=== PATIENT | female | born 1945 | race Caucasian/White ===

== ENCOUNTER → 2017-01-22 | Outpatient (CLI) | payer OTHER, MEDICARE | LOC: FIMAGING 11:40 | DX: Z12.31 Encounter for screening mammogram for malignant neoplasm of breast (principal) | CPT/HCPCS: G0202 ==

== ENCOUNTER → 2017-06-19 | Outpatient (CLI) | payer OTHER, MEDICARE | LOC: BHFA 13:00 | PROVIDERS: ATTEND Internal Medicine Cardiovascular Disease | DX: I48.91 Unspecified atrial fibrillation (principal) ==

== ENCOUNTER → 2017-07-22 | Outpatient (CLI) | payer OTHER, MEDICARE | LOC: BMCIMAGING 09:57 | PROVIDERS: ATTEND Physician Assistant Medical | DX: Z12.39 Encounter for other screening for malignant neoplasm of breast (principal); N63.20 Unspecified lump in the left breast, unspecified quadrant | CPT/HCPCS: 76641; G0206 ==

== ENCOUNTER 2017-10-29 16:20 | Emergency (ER) | payer OTHER, MEDICARE ==
[2017-10-29 16:24] VITALS: TEMP 98.2
--- NOTE | 2017-10-29 16:47 | CPEKG ---
Heart Rate: 115 RR Interval: 522 QRSD Interval: 76 QT Interval: 336 QTC Interval: 465 QRS [place]: -29 T Wave [place]: 60 EKG Severity - ABNORMAL ECG - EKG Impression: A-FLUTTER W/ PREDOM 2:1 AV BLOCK, A-RATE 254 EKG Impression: PROBABLE INFERIOR INFARCT, OLD Electronically Signed By: Harshal Pineda 29-Oct-2017 16:59:41
[2017-10-29] MEDS ORDERED: NS 1,000 ML IV ONE (16:55)
[2017-10-29] MEDS ORDERED: DILTIAZEM 25 MG/5 ML VIAL IVP ONE (16:55)
--- NOTE | 2017-10-29 16:59 | EDPHY ---
H & P Stated Complaint: afib Time Seen by Provider: 10/29/17 16:47 HPI/ROS: CHIEF COMPLAINT: Atrial fibrillation HISTORY OF PRESENT ILLNESS: The patient is a 71-year-old female with a history of atrial fibrillation and ablation several years ago on Eliquis, flecainide and diltiazem to control her occasional AFib symptoms. She states that this happens to her frequently but usually lasts a couple of minutes. She states that it began this morning just before she got out of bed. She denies chest pain or shortness of breath. She did take her medications this morning but has not taken any extra. She presented to her primary Dr Dean who recommended she come to the ER. She has not had any recent fevers or infections. No lightheadedness dizziness or headaches. REVIEW OF SYSTEMS: Constitutional: denies: chills, fever, recent illness, recent injury EENTM: denies: blurred vision, double vision, nose congestion Respiratory: denies: cough, shortness of breath Cardiac: See HPI Gastrointestinal/Abdominal: denies: abdominal pain, diarrhea, nausea, vomiting, blood streaked stools Genitourinary: denies: dysuria, frequency, hematuria, pain Musculoskeletal: denies: joint pain, muscle pain Skin: denies: lesions, rash, jaundice, bruising Neurological: denies: headache, numbness, paresthesia, tingling, dizziness, weakness Hematologic/Lymphatic: denies: blood clots, easy bleeding, easy bruising Immunologic/allergic: denies: HIV/AIDS, transplant EXAM: GENERAL: Well-appearing, well-nourished and in no acute distress. HEAD: Atraumatic, normocephalic. EYES: Pupils equal round and reactive to light, extraocular movements intact, sclera anicteric, conjunctiva are normal. ENT: TMs normal, nares patent, oropharynx clear without exudates. Moist mucous membranes. NECK: Normal range of motion, supple without lymphadenopathy or JVD. LUNGS: Breath sounds clear to auscultation bilaterally and equal. No wheezes rales or rhonchi. HEART: Irregular, tachycardic ABDOMEN: Soft, nontender, normoactive bowel sounds. No guarding, no rebound. No masses appreciated. BACK: No CVA tenderness, no spinal tenderness, step-offs or deformities EXTREMITIES: Normal range of motion, no pitting or edema. No clubbing or cyanosis. NEUROLOGICAL: Cranial nerves II through XII grossly intact. Normal speech, normal gait. 5/5 strength, normal movement in all extremities, normal sensation PSYCH: Normal mood, normal affect. SKIN: Warm, dry, normal turgor, no visible rashes or lesions. Source: Patient Exam Limitations: No limitations - Personal History Current Tetanus/Diphtheria Vaccine: Yes - Medical/Surgical History Hx Asthma: No Hx Chronic Respiratory Disease: No Hx Diabetes: No Hx Cardiac Disease: Yes Hx Renal Disease: No Hx Cirrhosis: No Hx Alcoholism: No Hx HIV/AIDS: No Hx Splenectomy or Spleen Trauma: No Other PMH: LILIANA, HYST, A FIB WITH ABLATION, HAS METAL STENT INTO NERVE TO BLADDER, A RESULT OF BLADDER SURGERY COMPLICATIONS/UNABLE TO HAVE MRI'S, ORTHO SURGERIES - Family History Significant Family History: No pertinent family hx - Social History Smoking Status: Never smoked Alcohol Use: Sober Drug Use: None Constitutional: Initial Vital Signs Temperature (C) 36.8 C 10/29/17 16:22 Heart Rate 122 H 10/29/17 16:22 Respiratory Rate 20 10/29/17 16:22 Blood Pressure 143/118 H 10/29/17 16:22 O2 Sat (%) 94 10/29/17 16:22 O2 Delivery Mode [Post Nasal Cannula Procedure 4th] O2 Delivery Mode [Post Nasal Cannula Procedure 3rd] O2 Delivery Mode [Post Non-Rebreather Mask Procedure 2nd] O2 Delivery Mode [Post Non-Rebreather Mask Procedure 1st] O2 Delivery Mode [Procedural Non-Rebreather Mask 1st] O2 Delivery Mode [.Immediate Non-Rebreather Mask Pre-Procedure] O2 Delivery Mode Room Air O2 (L/minute) [Post Procedure 3 4th] O2 (L/minute) [Post Procedure 3 3rd] O2 (L/minute) [Post Procedure 15 2nd] O2 (L/minute) [Post Procedure 15 1st] O2 (L/minute) [Procedural 1st] 15 O2 (L/minute) [.Immediate Pre- 15 Procedure] Allergies/Adverse Reactions: amoxicillin Allergy (Verified 10/29/17 16:21) dabigatran etexilate mesylate [From Pradaxa] Allergy (Verified 10/29/17 16:21) sulfamethoxazole [From Septra] Allergy (Verified 10/29/17 16:21) trimethoprim [From Septra] Allergy (Verified 10/29/17 16:21) Home Medications: Medication Instructions Recorded Apixaban [Eliquis] 5 mg PO BID 06/26/16 C/E/Zn/Cu/OM3/DHA/EPA/LUT/ZEAX 1 cap PO DAILY 06/26/16 [Preservision Areds 2 Softgel] Calcium Carbonate/Vitamin D3 1 tab PO DAILY 06/26/16 [Os-Teto 500-Vit D3 600 Caplet] Cholecalciferol Vit D3 [Vitamin D3 2,000 unit PO DAILY 06/26/16 2000 units tab (OTC)] Cyanocobalamin [Vitamin B12 (*)] 1,000 mcg PO DAILY 06/26/16 Diltiazem HCl [Diltiazem 24Hr ER] 120 mg PO HS 06/26/16 Flecainide Acetate [Tambocor] 100 mg PO BID 06/26/16 Magnesium Oxide [Magnesium] 500 mg PO DAILY 06/26/16 Omeprazole [Prilosec 20 mg] 20 mg PO BID 06/26/16 Venlafaxine HCl [Effexor] 50 mg PO BID 06/26/16 Acetaminophen [Tylenol 325mg (*)] 650 mg PO Q4 PRN 07/05/16 Acetaminophen [Tylenol 325mg (*)] 650 mg PO Q6HRS #0 tab 08/02/16 Sennosides/Docusate Sodium 1 - 2 tab PO BID #0 tab 08/02/16 [Senokot-S] celeCOXIB [Celebrex (*)] 200 mg PO DAILY #20 cap 08/02/16 oxyCODONE IR [Oxycodone Ir (*)] 5 - 10 mg PO Q3HRS PRN #120 tab 08/02/16 Acetaminophen [Tylenol 325mg (*)] 650 mg PO Q6HRS #0 tab 08/24/16 Cyclobenzaprine [Flexeril 10 MG 10 mg PO Q8HRS PRN #0 tab 08/24/16 (*)] Sennosides/Docusate Sodium 1 - 2 tab PO BID #0 tab 08/24/16 [Senokot-S] oxyCODONE IR [Oxycodone Ir (*)] 5 - 10 mg PO Q3HRS PRN #60 tab 08/24/16 Medical Decision Making - Diagnostics EKG Interpretation: An EKG obtained and was read and documented in trace view. Please see trace view for full reading and report. AFib/flutter, rate of 115 A repeat EKG obtained and was read and documented in trace view. Please see trace view for full reading and report. Sinus rhythm Procedures: Procedure: Procedural sedation. A pre-sedation evaluation was completed on the patient. Patient is an appropriate candidate for procedural sedation. The risks of the sedation were discussed with the patient. A time out was completed. The patient was sedated with ketamine and propofol. The patient was monitored with continuous pulse oximetry and genetic technologist. There were no complications and no significant hypoxemia. I remained at the bedside for the sedation. The total time I spent in the procedural sedation was 15 min. The patient was cardioverted with 20 joules synchronized electricity. She converted to sinus rhythm medially. Her vital signs remained stable. ED Course/Re-evaluation: 5:30 p.m. we discussed cardioversion versus rate control. Patient would prefer to be cardioverted. She is quite sure she has had the symptoms for less than 48 hr. She is already on Eliquis. We discussed the risks and she accepts them. 6:05 p.m. patient tolerated cardioversion well. She accepts the risks. She is currently in sinus rhythm. She was sedated for the procedures. 7:00 p.m. the patient continues to do well. She is eager to go home. She declines further workup or treatment. She will continue taking her blood thinners and cardiac medications. Differential Diagnosis: Partial list of the Differential diagnosis considered include but were not limited to; atrial fibrillation, atrial flutter and although unlikely based on the history and physical exam, I also considered SVT, acute coronary disease, PE , infection. I discussed these differential diagnoses and the plan with the patient as well as the usual and expected course. The patient understands that the diagnosis is provisional and that in medicine we are not always correct and that further workup is often warranted. Usual and customary warnings were given. All of the patient's questions were answered. The patient was instructed to return to the emergency department should the symptoms at all worsen or return, otherwise to followup with the physician as we discussed. - Data Points Laboratory Results: Laboratory Results 10/29/17 16:45 10/29/17 16:45 10/29/17 10/29/17 10/29/17 16:45 16:45 16:45 WBC 4.03 10^3/uL 10^3/uL (3.80-9.50) RBC 5.46 10^6/uL H 10^6/uL (4.18-5.33) Hgb 16.1 g/dL g/dL (12.6-16.3) Hct 47.8 % H % (38.0-47.0) MCV 87.5 fL fL (81.5-99.8) MCH 29.5 pg pg (27.9-34.1) MCHC 33.7 g/dL g/dL (32.4-36.7) RDW 13.2 % % (11.5-15.2) Plt Count 239 10^3/uL 10^3/uL (150-400) MPV 10.4 fL fL (8.7-11.7) Neut % (Auto) 30.9 % L % (39.3-74.2) Lymph % (Auto) 53.3 % H % (15.0-45.0) [place] % (Auto) 14.1 % H % (4.5-13.0) Eos % (Auto) 0.5 % L % (0.6-7.6) Baso % (Auto) 0.7 % % (0.3-1.7) Nucleat RBC Rel Count 0.0 % % (0.0-0.2) Absolute Neuts (auto) 1.24 10^3/uL L 10^3/uL (1.70-6.50) Absolute Lymphs (auto) 2.15 10^3/uL 10^3/uL (1.00-3.00) Absolute Monos (auto) 0.57 10^3/uL 10^3/uL (0.30-0.80) Absolute Eos (auto) 0.02 10^3/uL L 10^3/uL (0.03-0.40) Absolute Basos (auto) 0.03 10^3/uL 10^3/uL (0.02-0.10) Absolute Nucleated RBC 0.00 10^3/uL 10^3/uL (0-0.01) Immature Gran % 0.5 % % (0.0-1.1) Immature Gran # 0.02 10^3/uL 10^3/uL (0.00-0.10) PT 13.8 SEC SEC (12.0-15.0) INR 1.04 (0.83-1.16) APTT 32.6 SEC SEC (23.0-38.0) Sodium 144 mEq/L mEq/L (134-144) Potassium 3.9 mEq/L mEq/L (3.5-5.2) Chloride 102 mEq/L mEq/L (97-110) Carbon Dioxide 25 mEq/l mEq/l (22-31) Anion Gap 17 mEq/L H mEq/L (8-16) BUN 20 mg/dL mg/dL (7-23) Creatinine 0.9 mg/dL mg/dL (0.6-1.0) Estimated GFR > 60 Glucose 98 mg/dL mg/dL (70-100) Calcium 10.6 mg/dL H mg/dL (8.5-10.4) Troponin I < 0.012 ng/mL ng/mL (0.000-0.034) Medications Given: Discontinued Medications Diltiazem HCl (Cardizem 25 Mg/5 Ml Vial) 10 mg IVP EDNOW ONE Stop: 10/29/17 16:56 Last Admin: 10/29/17 17:02 Dose: 10 mg Sodium Chloride (Ns) 1,000 mls @ 0 mls/hr IV EDNOW ONE; Wide Open PRN Reason: Protocol Stop: 10/29/17 16:56 Last Admin: 10/29/17 17:02 Dose: 1,000 mls Ketamine HCl (Ketamine) 60 mg IVP EDNOW ONE Stop: 10/29/17 17:46 Last Admin: 10/29/17 17:46 Dose: 60 mg Propofol (Diprivan) 60 mg IVP EDNOW ONE Stop: 10/29/17 17:46 Last Admin: 10/29/17 17:47 Dose: 60 mg Departure - Departure Disposition: Home, Routine, Self-Care Clinical Impression: Encounter for cardioversion procedure Atrial fibrillation Qualifiers: Atrial fibrillation type: paroxysmal Qualified Code(s): I48.0 - Paroxysmal atrial fibrillation Condition: Fair Instructions: A-fib (Atrial Fibrillation) (ED), Cardioversion (DC) Referrals: NONE *PRIMARY CARE P,. [Unknown] - As per Instructions
[2017-10-29 17:02] LABS: PLATELET COUNT 239 10^3/uL (150-400)
[2017-10-29 17:13] LABS: INR 1.04 (0.83-1.16); PROTIME(PATIENT) 13.8 SEC (12.0-15.0)
[2017-10-29] MEDS ORDERED: ETOMIDATE 40 MG/20 ML INJ ONE (17:41)
[2017-10-29] MEDS ORDERED: KETAMINE 200 MG/20 ML VIAL ONE (17:41)
[2017-10-29] MEDS ORDERED: PROPOFOL 200 MG/20 ML VIAL IVP ONE (17:45)
[2017-10-29] MEDS ORDERED: KETAMINE 200 MG/20 ML VIAL IVP ONE (17:45)
[2017-10-29] MEDS ORDERED: PROPOFOL 200 MG/20 ML VIAL ONE (17:45)
--- NOTE | 2017-10-29 17:52 | CPEKG ---
Heart Rate: 76 RR Interval: 789 P-R Interval: 212 QRSD Interval: 94 QT Interval: 420 QTC Interval: 473 P [place]: 24 QRS [place]: -32 T Wave [place]: 40 EKG Severity - OTHERWISE NORMAL ECG - EKG Impression: SINUS RHYTHM EKG Impression: LEFT AXIS DEVIATION Electronically Signed By: Harshal Pineda 29-Oct-2017 18:07:33
[2017-10-29 19:43] VITALS: BP 145/86; PULSE 74; RESP 17; O2SAT 95
== END 2017-10-29 19:41 | disposition home or self-care (01) ==
PROC: 5A2204Z Restoration of Cardiac Rhythm, Single (ICD-10-PCS; principal; 2017-10-29)
PROC: 3E0337Z Introduction of Electrolytic and Water Balance Substance into Peripheral Vein, Percutaneous Approach (ICD-10-PCS; principal; 2017-10-29)
DX: I48.0 Paroxysmal atrial fibrillation (principal); Z79.01 Long term (current) use of anticoagulants
CPT/HCPCS: 92960; 93005; 96361; 96374; 99152; 99285; J2704

== ENCOUNTER → 2017-11-16 | Outpatient (CLI) | payer OTHER, MEDICARE | LOC: FIMAGING 08:34 | PROVIDERS: ATTEND Physician Assistant Medical | DX: R41.3 Other amnesia (principal); R25.1 Tremor, unspecified; F41.9 Anxiety disorder, unspecified ==

== ENCOUNTER → 2018-01-24 | Outpatient (CLI) | payer OTHER, MEDICARE | LOC: FIMAGING 10:43 | PROVIDERS: ATTEND Internal Medicine | DX: Z13.820 Encounter for screening for osteoporosis (principal); M85.89 Other specified disorders of bone density and structure, multiple sites; M54.9 Dorsalgia, unspecified ==

== ENCOUNTER 2018-06-27 10:22 | Day surgery (SDC) | payer OTHER, MEDICARE ==
[2018-06-27] MEDS ORDERED: ATROPINE SULFATE 1 MG/10 ML SYR IVP ONE (10:44)
[2018-06-27] MEDS ORDERED: NS 500 ML IV ONE (10:44)
[2018-06-27] MEDS ORDERED: fentaNYL 100 MCG/2 ML INJ IVP ONE (10:44)
[2018-06-27] MEDS ORDERED: BENZOCAINE UNIT DOSE SPRAY HURRICAINE MM ONE (10:44)
[2018-06-27] MEDS ORDERED: MIDAZOLAM 2 MG/2 ML VIAL IVP ONE (10:44)
--- NOTE | 2018-06-27 10:56 | PDANEPAE ---
ANE Past Medical History - Cardiovascular History Hx Hypertension: Yes Hx Arrhythmias: Yes Hx Chest Pain: No Hx Coronary Artery / Peripheral Vascular Disease: No Hx CHF / Valvular Disease: No Hx Palpitations: No Cardiovascular History Comment: A-FIB ON MEDICATIONS - Pulmonary History Hx COPD: No Hx Asthma/Reactive Airway Disease: No Hx Recent Upper Respiratory Infection: No Hx Oxygen in Use at Home: No Hx Sleep Apnea: Yes Pulmonary History Comment: BI-PAP AT NIGHT FOR SLEEP APNEA BUT NO OXYGEN - Neurologic History Hx Cerebrovascular Accident: No Hx Seizures: No Hx Dementia: No - Endocrine History Hx Diabetes: No - Renal History Hx Renal Disorders: Yes Renal History Comment: BLADDER STONE FORMATION - Liver History Hx Hepatic Disorders: No - Neurological & Psychiatric Hx Hx Neurological and Psychiatric Disorders: Yes Neurological / Psychiatric History Comment: CURRENTLY ON MEDICATION - Cancer History Hx Cancer: No - Congenital Disorder History Hx Congenital Disorders: No - GI History Hx Gastrointestinal Disorders: Yes Gastrointestinal History Comment: GERD - Chronic Pain History Chronic Pain: Yes (BACK AND NECK PAIN) - Surgical History Prior Surgeries: RIGHT ULNAR NERVE REPAIR 09/2015. BLADDER STONE REMOVAL 2014. NEUROMAS 02/2009. BLADDER LIFT 01/2008. LEFT BREAST LUMPECTOMY 02/2007. RIGHT TRAPEZOIDPLASTY 06/2001. LEFT TRAPEZOIDPLASTY 07/2001. JAW SURGERY [place] 1985. BUNIOECTOMY 1981. HYSTERECTOMY 1987. CHOLECYSTECTOMY 1982. TONSILLECTOMY A KID ANE Review of Systems Review of Systems: ANE Patient History - Allergies Allergies/Adverse Reactions: amoxicillin Allergy (Verified 10/29/17 16:21) dabigatran etexilate mesylate [From Pradaxa] Allergy (Verified 10/29/17 16:21) sulfamethoxazole [From Septra] Allergy (Verified 10/29/17 16:21) trimethoprim [From Septra] Allergy (Verified 10/29/17 16:21) - Home Medications Home Medications: Apixaban [Eliquis] 5 mg PO BID 06/26/16 [Last Taken 07/28/16] C/E/Zn/Cu/OM3/DHA/EPA/LUT/ZEAX [Preservision Areds 2 Softgel] 1 cap PO DAILY 04/05 [Last Taken 07/18/16] Calcium Carbonate/Vitamin D3 [Os-Teto 500-Vit D3 600 Caplet] 1 tab PO DAILY 06/26 [Last Taken 07/18/16] Cholecalciferol Vit D3 [Vitamin D3 2000 units tab (OTC)] 2,000 unit PO DAILY 04/05 [Last Taken 07/18/16] Cyanocobalamin [Vitamin B12 (*)] 1,000 mcg PO DAILY 06/26/16 [Last Taken ] Diltiazem HCl [Diltiazem 24Hr ER] 120 mg PO HS 06/26/16 [Last Taken 07/31/16 21: 00] Flecainide Acetate [Tambocor] 100 mg PO BID 06/26/16 [Last Taken 08/01/16 05:45] Magnesium Oxide [Magnesium] 500 mg PO DAILY 06/26/16 [Last Taken 07/18/16] Omeprazole [Prilosec 20 mg] 20 mg PO BID 06/26/16 [Last Taken 07/31/16 21:00] Venlafaxine HCl [Effexor] 50 mg PO BID 06/26/16 [Last Taken 08/01/16 05:45] Acetaminophen [Tylenol 325mg (*)] 650 mg PO Q4 PRN 07/05/16 [Last Taken 14:00] - Smoking Hx Smoking Status: Never smoked ANE Labs/Vital Signs - Vital Signs Height: 170 cm Weight: 79.4 kg ANE Physical Exam - Airway Neck exam: decreased ROM Mallampati Score: Class 2 Mouth exam: normal dental/mouth exam - Pulmonary Pulmonary: no respiratory distress - Cardiovascular Cardiovascular: regular rate and rhythym - ASA Status ASA Status: II ANE Anesthesia Plan Total IV Anesthesia: Yes
[2018-06-27] MEDS ORDERED: LIDOCAINE 2% 100 MG/5 ML SYR ONE (11:06)
[2018-06-27] MEDS ORDERED: PROPOFOL/EMULSION 500 MG/50 ML BOTTLE IV ONE (11:06)
[2018-06-27 11:12] LABS: INR 1.17 (0.83-1.16); PROTIME(PATIENT) 15.1 SEC (12.0-15.0)
--- NOTE | 2018-06-27 11:43 | PDHPUP ---
History & Physical Update H&P update statement: This history and physical update is based on an assessment of the patient which was completed after admission or registration (within 24 hours), but prior to the surgery/procedure. P with Aflutter. On Eliquis and Flecainide. H&P update: H&P reviewed & patient examined, no change in patient's condition since H&P completed
[2018-06-27] MEDS ORDERED: PROPOFOL 200 MG/20 ML VIAL ONE (12:05)
[2018-06-27] MEDS ORDERED: ALBUTEROL 3 ML DEYVIAL IH PRN (12:17)
[2018-06-27] MEDS ORDERED: NALOXONE HCL 0.4 MG/ML INJ IVP PRN (12:17)
--- NOTE | 2018-06-27 12:18 | POSTANESTH ---
Post Anesthetic Evaluation Cardiovascular Status: Normal, Stable Respiratory Status: Similar to Pre-op Cond. Level of Consciousness/Mental Status: Mildly Sleepy, Arousable Pain Control: Adequate, Prn Tx Ordered Nausea/Vomiting Control: Adequate, Prn Tx Ordered Complications Possibly Related to Anesthesia: None Noted
--- NOTE | 2018-06-27 14:18 | CPEKG ---
Test Reason : OPEN Blood Pressure : / mmHG Vent. Rate : 081 BPM Atrial Rate : 082 BPM P-R Int : 204 ms QRS Dur : 094 ms QT Int : 418 ms P-R-T Axes : 040 -25 030 degrees QTc Int : 486 ms Sinus rhythm Borderline left axis deviation Abnormal inferior Q waves Borderline prolonged QT interval Confirmed by Derick Mata ([id number]) on 06/27/2018 2:18:17 PM Referred By: Confirmed By:Derick Mata
--- NOTE | 2018-06-27 16:12 | ECHO ---
[email or web address] [address] [address] Main: [phone] Fax: Transesophageal Echocardiography Name: GERTRUDIS MCKEON MR#: [id number] Study Date: 06/27/2018 Study Time: 11:26 AM Date of : 1945 Age: 72 year(s) Height: ( ) Weight: ( ) BSA: Gender: Female Examination: ADELIA Indication: Pre Cardioversion Image Quality: Contrast: Requested by: Vernon Villeda Heart Rate: Rhythm: BP: / Procedure Staff Lead Nurse: Mekhi Chen RDCS Reading Physician: Vernon Villeda MD Requesting Provider: ADELIA Exam Details Conclusions: Normal global systolic LV function. Normal RV function. No thrombus is noted in the left atrium. Good color flow doppler in the left atrial appendage. No thrombus in left appendage. Measurements: Chambers Valvular Assessment AV/MV Valvular Assessment TV/PV Normal Normal Normal Name Value Range Name Value Range Name Value Range Additional Measurements: Findings: Left Ventricle: Normal global systolic LV function. Right Ventricle: Normal RV function. Left Atrium: No thrombus is noted in the left atrium. Left Atrial Appendage: Good color flow doppler in the left atrial appendage. No thrombus in left appendage. Right Atrium: Patient: GERTRUDIS MCKEON Study Date: 06/27/2018 Page 1 of 2 11:26 AM The right atrium is normal in size. Mitral Valve: The mitral valve is normal in appearance and function. Trivial to mild mitral regurgitation. Aortic Valve: The aortic valve is tri-leaflet. The aortic valve is normal in appearance and function. Tricuspid Valve: The tricuspid valve is normal in appearance and function. Pulmonic Valve: The pulmonic valve is normal in appearance and function. Aorta: The aorta is normal. Pericardium: No pericardial effusion. Exam Comments: Proceeded with successful elective DC cardioversion.. l1n (No Signature Object) Patient: GERTRUDIS MCKEON Study Date: 06/27/2018 Page 2 of 2 11:26 AM [id number]
--- NOTE | 2018-06-27 17:27 | CPR ---
DATE OF PROCEDURE: 06/27/2018 PROCEDURE PERFORMED: Transesophageal echocardiogram, cardioversion. INDICATION FOR PROCEDURE: Atrial flutter with rapid ventricular response. Ms. Bernardo is a pleasant, 72-year-old female, with a known history of paroxysmal atrial fibrillation a nd atrial flutter, who presented to Dr. Christensen's office today in atrial flutter with rapid ventricular r esponse. She is currently on flecainide and Eliquis. She has been compliant with medications. In t he setting of symptomatic atrial flutter with rapid ventricular response, the decision was made for jessie gregory to be transferred from the office to the cardiovascular center for cardioversion. PROCEDURE IN DETAIL: After informed consents were obtained for anesthesia, ADELIA, and cardioversion, t he patient was sedated with propofol. ADELIA probe was passed without incident. ADELIA probe was used to take images of the left atrial appendage in detail as well as the left atrium. There was no evidence of left atrial appendage or left atrial thrombus. Please see complete 2D echocardiogram for full de tails. ADELIA probe was removed without incident. Patient underwent a single biphasic shock of 150 joules of synchronized energy with anglican of si nus rhythm. The patient awoke from the procedure without complications. PLAN: 1. The patient will be discharged home. 2. Patient will continue current medications, including Eliquis 5 mg p.o. b.i.d. and current dose of flecainide. 3. The patient will follow up with Dr. Jhonathan Christensen in the office. /[id number]/MODL
== END 2018-06-27 13:20 | disposition home or self-care (01) ==
LOC: FCVC 10:22 → FCATH 13:20
PROVIDERS: ATTEND Internal Medicine Cardiovascular Disease
PROC: B245ZZ4 Ultrasonography of Left Heart, Transesophageal (ICD-10-PCS; principal; 2018-06-27)
PROC: 5A2204Z Restoration of Cardiac Rhythm, Single (ICD-10-PCS; principal; 2018-06-27)
DX: I48.0 Paroxysmal atrial fibrillation (principal); I10 Essential (primary) hypertension; Z79.01 Long term (current) use of anticoagulants
CPT/HCPCS: J2001; J2704

== ENCOUNTER → 2018-07-10 | Outpatient (CLI) | payer OTHER, MEDICARE | LOC: BHFA 10:30 | PROVIDERS: ATTEND Internal Medicine Cardiovascular Disease | DX: I48.0 Paroxysmal atrial fibrillation (principal); I47.1 Supraventricular tachycardia ==

== ENCOUNTER 2018-08-13 11:15 | Observation (INO) | payer OTHER, MEDICARE ==
[2018-08-13] MEDS ORDERED: NS 1,000 ML IV ONE (11:18)
--- NOTE | 2018-08-13 11:30 | PDGENHP ---
History & Physical Chief Complaint: afl, symptomatic Relevant Physical Exam: s1s2 rrr cta ao3 Cardiorespiratory Assessment: for afl ablation. patient does NOT want afib ablation at this time, will need to remain on AAD
[2018-08-13 11:59] LABS: PLATELET COUNT 212 10^3/uL (150-400)
[2018-08-13 12:07] LABS: INR 0.98 (0.83-1.16); PROTIME(PATIENT) 13.2 SEC (12.0-15.0)
[2018-08-13] MEDS ORDERED: MIDAZOLAM 2 MG/2 ML VIAL IVP ONE (13:02)
--- NOTE | 2018-08-13 13:03 | PDANEPAE ---
ANE History of Present Illness here for ANTELMO ablation ANE Past Medical History - Cardiovascular History Hx Hypertension: Yes Hx Arrhythmias: Yes Hx Chest Pain: No Hx Coronary Artery / Peripheral Vascular Disease: No Hx CHF / Valvular Disease: No Hx Palpitations: No Cardiovascular History Comment: A-FIB ON MEDICATIONS - Pulmonary History Hx COPD: No Hx Asthma/Reactive Airway Disease: No Hx Recent Upper Respiratory Infection: No Hx Oxygen in Use at Home: No Hx Sleep Apnea: Yes Pulmonary History Comment: BI-PAP AT NIGHT FOR SLEEP APNEA BUT NO OXYGEN - Neurologic History Hx Cerebrovascular Accident: No Hx Seizures: No Hx Dementia: No - Endocrine History Hx Diabetes: No - Renal History Hx Renal Disorders: Yes Renal History Comment: BLADDER STONE FORMATION - Liver History Hx Hepatic Disorders: No - Neurological & Psychiatric Hx Hx Neurological and Psychiatric Disorders: Yes Neurological / Psychiatric History Comment: CURRENTLY ON MEDICATION - Cancer History Hx Cancer: No - Congenital Disorder History Hx Congenital Disorders: No - GI History Hx Gastrointestinal Disorders: Yes Gastrointestinal History Comment: GERD - Chronic Pain History Chronic Pain: Yes (BACK AND NECK PAIN) - Surgical History Prior Surgeries: RIGHT ULNAR NERVE REPAIR 09/2015. BLADDER STONE REMOVAL 2014. NEUROMAS 02/2009. BLADDER LIFT 01/2008. LEFT BREAST LUMPECTOMY 02/2007. RIGHT TRAPEZOIDPLASTY 06/2001. LEFT TRAPEZOIDPLASTY 07/2001. JAW SURGERY [place] 1985. BUNIOECTOMY 1981. HYSTERECTOMY 1987. CHOLECYSTECTOMY 1982. TONSILLECTOMY A KID ANE Review of Systems Review of systems is: negative Review of Systems: - Exercise capacity Exercise capacity: >=4 METS ANE Patient History - Allergies Allergies/Adverse Reactions: amoxicillin Allergy (Verified 10/29/17 16:21) dabigatran etexilate mesylate [From Pradaxa] Allergy (Verified 10/29/17 16:21) sulfamethoxazole [From Septra] Allergy (Verified 10/29/17 16:21) trimethoprim [From Septra] Allergy (Verified 10/29/17 16:21) - Home Medications Home medications: home medication list seen and reviewed Home Medications: Apixaban [Eliquis] 5 mg PO BID 06/26/16 [Last Taken 08/11/18] Calcium Carbonate/Vitamin D3 [Os-Teto 500-Vit D3 600 Caplet] 1 tab PO DAILY 06/26 [Last Taken 08/09/18] Cholecalciferol Vit D3 [Vitamin D3 2000 units tab (OTC)] 2,000 unit PO DAILY 04/05 [Last Taken 08/09/18] Cyanocobalamin [Vitamin B12 (*)] 1,000 mcg PO DAILY 06/26/16 [Last Taken ] Diltiazem HCl [Diltiazem 24Hr ER] 120 mg PO HS PRN 06/26/16 [Last Taken 08/12/18 ] Flecainide Acetate [Tambocor] 100 mg PO BID 06/26/16 [Last Taken 08/10/18] Omeprazole [Prilosec 20 mg] 20 mg PO BID 06/26/16 [Last Taken 08/12/18] Acetaminophen [Tylenol 325mg (*)] 650 mg PO Q4 PRN 07/05/16 [Last Taken 08/12/18 ] Ascorbic Acid [Vitamin C 500 mg (*)] 1,000 mg PO DAILY 08/13/18 [Last Taken ] Azelastine [Astelin Nasal [place] (RX)] 2 sprays EACHNARE BID 08/13/18 [Last Taken 08/12/18] Desvenlafaxine [Desvenlafaxine ER] 100 mg PO DAILY 08/13/18 [Last Taken 08/12/18 ] Fluticasone Nasal [Flonase Nasal [place] (RX)] 2 sprays NASAL DAILY 08/13/18 [ Last Taken 08/11/18] Herbals/Supplements -Info Only 1 ea PO DAILY 08/13/18 [Last Taken 08/10/18] Zoledronic Acid [Zometa] 4 mg IV Q365D 08/13/18 [Last Taken 01/01/18] - NPO status NPO Status: no food or drink >8 hours - Smoking Hx Smoking Status: Never smoked ANE Labs/Vital Signs - Labs Result Diagrams: 08/13/18 11:50 08/13/18 11:50 - Vital Signs Height: 170 cm Weight: 78 kg ANE Physical Exam - Airway Neck exam: FROM Mallampati Score: Class 1 - Pulmonary Pulmonary: no respiratory distress - Cardiovascular Cardiovascular: regular rate and rhythym - ASA Status ASA Status: II ANE Anesthesia Plan Anesthesia Plan: general endotracheal anesthesia
[2018-08-13] MEDS ORDERED: HEPARIN 10,000 UNIT/10 ML MDV (1,000 UNIT/ML) ONE ×2 (13:05→14:55)
[2018-08-13] MEDS ORDERED: ISOPROTERENOL HCL/D5W 0.2 MG/50 ML BAG IV ONE (13:05)
[2018-08-13] MEDS ORDERED: LIDOCAINE 1% 300 MG/30 ML SDV ONE (13:05)
[2018-08-13] MEDS ORDERED: BUPIVACAINE 0.75% 10 ML SDV ONE (13:05)
[2018-08-13] MEDS ORDERED: MIDAZOLAM 2 MG/2 ML VIAL ONE (13:10)
[2018-08-13] MEDS ORDERED: PROPOFOL/EMULSION 500 MG/50 ML BOTTLE IV ONE ×2 (13:24→14:48)
[2018-08-13] MEDS ORDERED: fentaNYL 100 MCG/2 ML INJ ONE (13:27)
[2018-08-13] MEDS ORDERED: ePHEDrine SULFATE 25 MG/5 ML SYR ONE (13:31)
[2018-08-13] MEDS ORDERED: PHENYLEPHRINE HCL 100 MCG/ML SYR ONE (13:31)
[2018-08-13] MEDS ORDERED: METOPROLOL TARTRATE 5 MG/5 ML INJ ONE (14:57)
[2018-08-13] MEDS ORDERED: SUGAMMADEX SODIUM 200 MG/2 ML VIAL IVP ONE (15:07)
[2018-08-13] MEDS ORDERED: PROTAMINE SULFATE 50 MG/5 ML VIAL IVP ONE (15:17)
[2018-08-13] MEDS ORDERED: ONDANSETRON 4 MG/2 ML VIAL ONE (15:18)
[2018-08-13] MEDS ORDERED: DILTIAZEM CD 120 MG CAP PO PRN (15:45)
[2018-08-13] MEDS ORDERED: ACETAMINOPHEN 325 MG TAB PO PRN (15:45)
--- NOTE | 2018-08-13 15:56 | EPPROC ---
Electrophysiology Procedure Note: ELECTROPHYSIOLOGIC STUDY AND CATHETER MEDIATED ABLATION FOR SUBEUSTACHIAN ISTHMUS DEPENDENT COUNTERCLOCKWISE ATRIAL FLUTTER: INDICATION: Recurrent atrial flutter PROCEDURES PERFORMED: 76533-99 EP evaluation with RA/RV/LA pace/record, with arrhythmia induction 93078-22 EP evaluation with RA/RV pace record, insert/reposition catheter, with arrhythmia induction 14825 SVT ablation 15688 3D mapping Fluoroscopy Catheters & Anesthesia: The patient arrived in the Electrophysiology Laboratory in the fasting state. The right clavicular region, right groin, and left groin area were prepped and draped in the usual sterile manner. Anesthesiologist Dr. Nidia Carpio administered general anesthesia. Appropriate non-invasive blood pressure, pulse oximetry and end-tidal CO2 monitoring was established. All catheters were placed percutaneously using the modified Seldinger technique , and advanced into position under fluoroscopic guidance. One #7 Luxembourger deflectable octapolar electrode catheter was advanced to the His-bundle position via the left femoral vein (2mm spacing; except the proximal ring which was 25cm from the tip used for unipolar recordings). One #7 Luxembourger deflectable catheter with 10 pairs of electrodes was placed via the left femoral vein into the coronary sinus. One # 7 Luxem[place]ger Halo catheter was inserted through the right femoral vein and was placed at the tricuspid annulus. Heparin was administered to keep ACT > 250 seconds. Programmed stimulation was performed from the right atrium, coronary sinus ( left atrium) and right ventricle. Parahisian pacing demonstrated all retrograde conduction over the AV node. On arrival to the Electrophysiology Laboratory the patient was in sinus rhythm. Atrial flutter, CL 250 ms was easily induced by CS pacing. Entrainment mapping from lateral TA, septal TA, proximal CS and distal CS confirmed cavotricuspid isthmus dependent atrial flutter. In preparation for ablation of typical atrial flutter, a high-resolution 3D (3 dimensional) Carto electroanatomical map of the sub-Eustachian isthmus and right atrium was obtained during pacing of the posterolateral coronary sinus. For ablation of typical atrial flutter, one #8.5 Luxembourger ramp1 sheath was placed in the right atrium. A #8 Luxembourger deflectable quadrapolar electrode catheter ( 2mm-5mm-2mm spacing) with 3.5 mm irrigated tip electrode and location sensor for the [place] mapping system was inserted in the long sheath and advanced to the right atrium. Radiofrequency applications were applied between the tricuspid annulus at 0630 oclock as seen in the BURMESE view and the inferior vena cava. This achieved conduction block across the isthmus. Atrial fibrillation was induced x 2 and required cardioversion. Post ablation, a high-resolution electroanatomical map of the sub-Eustachian isthmus was obtained during pacing of the posterolateral coronary sinus. This confirmed conduction block across the sub-Eustachian isthmus. Bidirectional block was also confirmed by pacing. The catheters were removed. Protamine was administered. Sheaths were removed in the EP lab after applying subcutaneous purse string suture. The patient was transferred to the cardiovascular holding area in stable condition. There were no apparent complications. CONCLUSIONS: 1. Cavotricuspid isthmus dependent counterclockwise atrial flutter. 2. Successful catheter mediated ablation of cavotricuspid isthmus achieving bi -directional conduction block across cavotricuspid isthmus. 3. Atrial fibrillation which will be managed with flecainide per discussion with patient prior to ablation. 4. No apparent complications. Patient Problems: Problems Problem Status Onset Atrial flutter Acute Primary localized osteoarthritis of right knee Acute Skin infection of right knee Acute
[2018-08-13] MEDS: FLECAINIDE ACETATE 100 MG TAB PO SCH ×2 (16:19→21:06)
--- NOTE | 2018-08-13 17:24 | POSTANESTH ---
Post Anesthetic Evaluation Cardiovascular Status: Normal, Stable Respiratory Status: Normal, Stable Level of Consciousness/Mental Status: Can Participate in Eval Pain Control: Adequate, Prn Tx Ordered Nausea/Vomiting Control: Adequate, Prn Tx Ordered Complications Possibly Related to Anesthesia: None Noted
[2018-08-13] MEDS: APIXABAN 5 MG TAB PO SCH (21:06)
[2018-08-13] MEDS: AZELASTINE NASAL MDI EACHNARE SCH (22:26)
[2018-08-14 04:52] LABS: PLATELET COUNT 190 10^3/uL (150-400)
[2018-08-14] MEDS ORDERED: PANTOPRAZOLE SODIUM 40 MG TAB PO SCH (09:00)
[2018-08-14] MEDS ORDERED: CYANO/VITAMIN B12 1000 MCG TAB PO SCH (09:00)
[2018-08-14] MEDS ORDERED: CALCIUM CARB W/VIT D 500 MG TAB PO SCH (09:00)
[2018-08-14] MEDS ORDERED: CHOLECALCIFEROL VIT D3 2,000 UNITS TAB/CAP PO SCH (09:00)
[2018-08-14] MEDS ORDERED: FLUTICASONE NASAL 120 SPRAYS/16 GM MDI EACHNARE SCH (09:00)
[2018-08-14] MEDS ORDERED: Herbals/Supplements -Info Only PO SCH (09:00)
[2018-08-14] MEDS ORDERED: Desvenlafaxine [Desvenlafaxine Er] 100 MG PO SCH (09:00)
[2018-08-14] MEDS: AZELASTINE NASAL MDI EACHNARE SCH (09:28)
[2018-08-14] MEDS: FLECAINIDE ACETATE 100 MG TAB PO SCH (09:30)
[2018-08-14] MEDS: APIXABAN 5 MG TAB PO SCH (09:30)
[2018-08-14 11:39] VITALS: BP 144/78
--- NOTE | 2018-08-14 12:44 | ASMTLACE ---
ISAURO Length of stay for Answers: 1 day current admission Acuity / Level of Answers: No Care: Did the patient have an inpatient admission? Comorbidities - select Answers: Opioid dependence all that apply / Chronic pain Other Notes: AFib # of Emergency department Answers: 0 visits in the last 6 months Score: 6 Date Signed: 08/14/2018 12:43 PM Electronically Signed By:Emmie Alvarez
--- NOTE | 2018-08-14 12:44 | ASMTDCNOTE ---
Case Management Discharge Discharge Order Complete? Answers: Yes Patient to Obtain Answers: via Family Medications Transportation Arranged Answers: Family/Friends Family Notified Answers: Yes Notes: pt called dtr. Discharge Comments Notes: Spoke with pt in the room and with pt's RN. Pt admitted for A flutter ablation today. Pt lives alone independently and has daughter in the area. Pt likely to discharge today. Plans to spend the night with her daughter upon discharge, but feels comfortable being independent after that. No CM needs noted at this time. CM available should needs change. Date Signed: 08/14/2018 12:44 PM Electronically Signed By:Emmie Alvarez
--- NOTE | 2018-08-14 13:03 | GDS ---
SUPERVISING PLUGGING MACHINE OPERATOR: Jhonathan Christensen MD. ADMISSION DIAGNOSES: 1. Paroxysmal atrial fibrillation. 2. Atrial flutter. 3. Gastroesophageal reflux disease. DISCHARGE DIAGNOSES: 1. Paroxysmal atrial fibrillation. 2. Atrial flutter. 3. Status post ablation of cavotricuspid isthmus achieving bidirectional conduction to prevent atria l flutter. 4. Gastroesophageal reflux disease. PROCEDURES PERFORMED DURING HOSPITALIZATION: 1. Electrocardiogram. 2. Electrophysiology study. 3. Ablation of cavotricuspid isthmus achieving bidirectional conduction for atrial flutter. 4. Echocardiogram. BRIEF HISTORY: Please see H and P. Briefly, the patient is a 72-year-old female with noted history of paroxysmal atrial fibrillation. This has been controlled with diltiazem and flecainide. She has recently been developing atrial flutter, with requiring cardioversion. She was seen by Dr. Christensen, who felt that she was appropriate candidate to undergo EP study with potential ablation of A flutter. HOSPITAL COURSE: Patient admitted to the PCU for prep for a procedure and taken to the electrophysio logy lab. There, Dr. Christensen performed EP procedure. He did identify a cavotricuspid isthmus-dependent counter clemons A flutter. Ablation procedure was done, which prevented further episodes of flutter. P rior to procedure, the patient and Dr. Christensen decided to control her AFib with antiarrhythmic therapy wh ich she has been on for multiple years with no problems. No complications. Patient was transferred back to the CVC, and ultimately to the PCU for overnight observation. There, she was noted to have a brief run of AFib around 1 a.m. this morning but converted back into sinus. No flutter noted. No m alignant arrhythmias. She has been up and walking in the unit without chest pain, pressure, or sympt oms suggesting of ischemia. CURRENT PHYSICAL EXAMINATION: GENERAL APPEARANCE: Thin, well-groomed female. She is aler t and oriented to person, place, time, and situation. Appears to be under no acute distress. CURREN T VITAL SIGNS: 144/78, heart rate of 77, respirations are 18, saturating 95% on room air. Temperatur e 36.7 degrees Celsius. HEENT: Head is normocephalic. Lips and tongue are pink and moist with no s igns of cyanosis. Conjunctivae pink. NECK: Trachea is midline, +2 carotid pulses bilateral, no aus cultated bruits, no jugular vein distention. RESPIRATORY: Lungs are clear to auscultation. No rhon chi, rales, or wheezes. No accessory muscle use. No intercostal muscle retraction noted. CARDIAC: Regular rate, regular rhythm. S1, S2. No S3, S4, gallops, rubs, or murmurs noted. ABDOMEN: Soft, nontender, bowel sounds x4 quadrants. No organomegaly. No palpable masses. SKIN: [place], warm, dry , no cyanosis, no clubbing, no peripheral edema. VASCULAR: +2 carotids bilateral, +2 radials bilate ral, +2 dorsal pedal and posterior tibial pulses bilateral. : Catheter access site, bilateral groin sites, with no redness, swelling, drainage, ecchymosis, or hematoma. Pursestring sutures removed intact. LABORATORY STUDIES: Drawn from today show WBC of 4.02, hemoglobin of 14.4, hematocrit of 43.9, plate let count of 190. Sodium 141, potassium 4.1, chloride 108, CO2 24, BUN 17, creatinine 0.8, glucose 9 5, calcium 9.2, troponin of 0.30. Unexpected to have elevated troponin levels after ablation. PROCEDURES: Electrophysiology and atrial flutter ablation as mentioned above, preliminary of echocar diogram done this morning showing normal left ventricular systolic function, no wall motion abnormali ties, no pericardial effusion. Electrocardiogram done today showing sinus rhythm, borderline left ax is deviation with no significant ST or T-wave abnormalities. DISCHARGE DISPOSITION: Patient will be discharged home in stable condition. She is under activity r estrictions of not lifting more than 10 pounds for the next week and no strenuous activity for the ne xt 2 weeks. DISCHARGE MEDICATIONS: Please see discharge med reconciliation sheet. Note patient has been resumed on her home dosage of diltiazem, flecainide, and Eliquis. DISCHARGE INSTRUCTIONS: Post A flutter ablation discharge instructions. Went over with the patient including monitoring for signs of infection, bleeding precautions, activity restrictions, medication compliancy. The patient has a followup appointment set with Dr. Christensen in approximately 3 weeks. At the time of discharge, patient verbalizes understanding all instructions and has no questions or concern s. The patient has been told that if any problems or concerns come up post discharge, she is call ou r office or return to the hospital. Total time spent on discharge greater than 30 minutes. /[id number]/MODL
--- NOTE | 2018-08-14 16:28 | CPEKG ---
Test Reason : OPEN Blood Pressure : / mmHG Vent. Rate : 070 BPM Atrial Rate : 072 BPM P-R Int : 158 ms QRS Dur : 089 ms QT Int : 393 ms P-R-T Axes : -10 -36 029 degrees QTc Int : 425 ms Sinus rhythm Left axis deviation Confirmed by Aubrey Buenrostro ([id number]) on 08/14/2018 4:28:17 PM Referred By: Confirmed By:Aubrey Buenrostro
--- NOTE | 2018-08-14 16:31 | CPEKG ---
Test Reason : OPEN Blood Pressure : / mmHG Vent. Rate : 091 BPM Atrial Rate : 128 BPM P-R Int : 220 ms QRS Dur : 088 ms QT Int : 381 ms P-R-T Axes : 000 -05 -03 degrees QTc Int : 469 ms Atrial fibrillation Minimal ST depression, anterior leads Atrial fibrillation is new in comparison to prior Confirmed by Aubrey Buenrostro ([id number]) on 08/14/2018 4:31:37 PM Referred By: Confirmed By:Aubrey Buenrostro
--- NOTE | 2018-08-14 16:56 | ECHO ---
[email or web address] [address] [address] Main: [phone] Fax: [email or web address] Echocardiogram Name: GERTRUDIS MCKEON MR#: [id number] Study Date: 08/14/2018 Study Time: 09:47 AM Date of : 1945 Age: 72 year(s) Height: 167.6 cm (66 in.) Weight: 77.57 kg (171 lb.) BSA: 1.87 m2 Gender: Female Examination: Echo Indication: F/U Post EP study Image Quality: Adequate Contrast: Requested by: Jhonathan Christensen BP: 123 mmHg/67 mmHg Heart Rate: Rhythm: Indication: F/U Post EP study Procedure Staff Bulb Tester: Angelika Bacon RDCS Reading Physician: Aurora Moore MD Requesting Provider: Conclusions: Normal size left ventricle. Normal global systolic LV function. EF is 58 %. No regional wall motion abnormality. Normal size right ventricle. Normal RV function. Mild tricuspid regurgitation is present. Right ventricular systolic pressure measures 33mmHg. Trivial anterior pericardial effusion. Compared with 03/29/2014 overall similar findings. Measurements: Chambers Valvular Assessment AV/MV Valvular Assessment TV/PV Normal Normal Normal Name Value Range Name Value Range Name Value Range Ao Bri (2D): 2.8 cm (1.4 cm-2.6 AV Vmax: 1.35 m/s (1 m/s-1.7 TR Vmax: 2.65 mm/s ( - ) cm) m/s) TR PGmax: 28 mmHg ( - ) IVSd (2D): 1.1 cm (0.6 cm-1.1 AV maxP mmHg ( - ) syst. PAP: 33 mmHg ( - ) cm) AV meanP mmHg ( - ) PV Vmax: 0.80 m/s (0.6 m/s-0.9 LVDd (2D): 4.0 cm (3.9 cm-5.3 BLACK (VTI): 2.1 cm ( - ) m/s) cm) MV E Vmax: 0.77 m/s ( - ) PV PGmax: 3 mmHg ( - ) LVDs (2D): 2.6 cm (2.1 cm-4 MV A Vmax: 0.69 m/s ( - ) cm) MV E/A: 1.12 ( - ) LVPWd (2D): 1.1 cm ( - ) MV PHT: 0.074 s ( - ) LVOTd 2.0 cm 2.0 cm mm MVA (PHT): 3.0 s ( - ) LVEF (BP): 58 % (>=55 %) RVDd(2D): 3.7 cm (1.9 cm-3.8 cmmm) Continued Measurements: Patient: GERTRUDIS MCKEON Study Date: 08/14/2018 Page 1 of 2 09:47 AM Chambers Valvular Assessment AV/MV Valvular Assessment TV/PV Name Value Name Value Name Value LADs: 3.2 cm MV DecTime: 246 m/s CVP (est.): 5 mmHg LADs Lon.3 cm MV E' Septal: 0.08 m/s LA Area: 17.1 cm2 MV E/E' Septal: 10.30 LA Volume: 48 ml MV E/E' Lateral: 9.90 LA Volume Index: 25.7 ml/m2 RA Area: 13.3 cm2 Additional Vessels Name Value Ao Ascendin.1 cm Inferior Vena Cava: 1.5 cm Findings: Left Ventricle: Normal size left ventricle. No LV hypertrophy. Normal global systolic LV function. EF is 58 %. No regional wall motion abnormality. Normal diastolic LV function. Right Ventricle: Normal size right ventricle. Normal RV function. Left Atrium: The left atrium is normal in size. Right Atrium: The right atrium is normal in size. Mitral Valve: The mitral valve is normal in appearance and function. Trivial mitral valve regurgitation. No mitral stenosis is present. Aortic Valve: The aortic valve is tri-leaflet. Trivial aortic valve regurgitation. No aortic valve stenosis is present. Tricuspid Valve: The tricuspid valve is normal in appearance and function. Mild tricuspid regurgitation is present. The pulmonary artery pressure is normal. Right ventricular systolic pressure measures 33mmHg. Pulmonic Valve: The pulmonic valve is normal in appearance and function. Trivial pulmonic valve regurgitation. Aorta: The aorta is normal. Normal size aortic root measuring 2.8 cm. Normal size ascending aorta measuring 3.1 cm. IVC: The IVC is normal sized. Pericardium: Trivial anterior pericardial effusion. No pleural effusion. (No Signature Object) Patient: GERTRUDIS MCKEON Study Date: 08/14/2018 Page 2 of 2 09:47 AM [id number]
--- NOTE | 2018-08-15 12:16 | CPEKG ---
Test Reason : OPEN Blood Pressure : / mmHG Vent. Rate : 070 BPM Atrial Rate : 070 BPM P-R Int : 198 ms QRS Dur : 092 ms QT Int : 421 ms P-R-T Axes : 069 -15 028 degrees QTc Int : 455 ms Sinus rhythm Borderline left axis deviation Normal sinus rhythm has replaced atrial fibrillation noted on prior ECG Confirmed by Aubrey Buenrostro ([id number]) on 08/15/2018 12:16:32 PM Referred By: Confirmed By:Aubrey Buenrostro
[2019-01-01] MEDS ORDERED: ZOLEDRONIC ACID 4 MG IV SCH (09:00)
== END 2018-08-14 14:27 | disposition home or self-care (01) ==
LOC: FCATH 11:15 → F2W 15:34
PROVIDERS: ADMIT Internal Medicine Cardiovascular Disease; ATTEND Internal Medicine Cardiovascular Disease
DX: I48.0 Paroxysmal atrial fibrillation (principal); I48.92 Unspecified atrial flutter; K21.9 Gastro-esophageal reflux disease without esophagitis; I10 Essential (primary) hypertension; G47.33 Obstructive sleep apnea (adult) (pediatric); Z79.01 Long term (current) use of anticoagulants
CPT/HCPCS: 93005; 93306; 93613; 93621; 93623; 93653; C1731; C1732; C1766; J1644; J2250; J2370; J2405; J2704; J2720; J3010

== ENCOUNTER → 2018-08-27 | Outpatient (CLI) | payer OTHER, MEDICARE | LOC: CIMAGING 12:44 | PROVIDERS: ATTEND Physician Assistant Medical | DX: J98.4 Other disorders of lung (principal) | CPT/HCPCS: 71046-PO ==

== ENCOUNTER → 2018-12-22 | Outpatient (CLI) | payer OTHER, MEDICARE | LOC: EMCIMAGING 13:10 | PROVIDERS: ATTEND Physician Assistant | DX: M54.16 Radiculopathy, lumbar region (principal); M54.2 Cervicalgia; M51.36 Other intervertebral disc degeneration, lumbar region; M48.061 Spinal stenosis, lumbar region without neurogenic claudication; M43.02 Spondylolysis, cervical region; M43.06 Spondylolysis, lumbar region; Z96.9 Presence of functional implant, unspecified | CPT/HCPCS: 72125-PN; 72131-PN ==

== ENCOUNTER → 2019-01-02 | Outpatient (CLI) | payer OTHER, MEDICARE | LOC: EMCIMAGING 11:04 | PROVIDERS: ATTEND Physician Assistant Medical | DX: Z12.31 Encounter for screening mammogram for malignant neoplasm of breast (principal) | CPT/HCPCS: 77067-PN ==